=== PATIENT | female | born 1990 | race Two or more races ===

== ENCOUNTER 2017-11-29 13:53 | Inpatient (IN) | payer OTHER ==
[~2017-11-29] VITALS: Ht 152.4 cm; Wt 2.7 kg
[~2017-11-29 13:53] MED LIST: AMOX1TAB12 PO; INTESTINEX1 CA1 PO
[2017-12-11] MEDS ORDERED: PRENATAL TABLE1 EAC1 PO (11:25)
[2017-12-11] MEDS ORDERED: VALTREX1000 MG PO (11:26)
[2017-12-11] MEDS ORDERED: IRON PO (11:27)
== END 2017-12-14 14:40 | DRG 766 ==
LOC: LDR 12-11 09:48 → SURG-SUITE 12-11 14:06 → LDR 12-17 13:30
PROVIDERS: Specialist
PROC: 4A1HXCZ Monitoring of Products of Conception, Cardiac Rate, External Approach (ICD-10-PCS; 2017-12-11)
PROC: 10D00Z1 Extraction of Products of Conception, Low, Open Approach (ICD-10-PCS; principal; 2017-12-11 12:00)
DX: O75.82 Onset (spontaneous) of labor after 37 completed weeks of gestation but before 39 completed weeks gestation, with delivery by (planned) cesarean section (principal); Z3A.38 38 weeks gestation of pregnancy; Z37.0 Single live birth